=== PATIENT | male | born 1965 | race Caucasian/White ===

== ENCOUNTER 2016-09-30 22:16 | Outpatient (CLI) | payer MEDICAID | END 2016-09-30 22:17 | disposition home or self-care (01) | DX: F90.2 Attention-deficit hyperactivity disorder, combined type (principal); F31.32 Bipolar disorder, current episode depressed, moderate ==

== ENCOUNTER 2016-10-07 09:16 | Day surgery (SDC) | payer MEDICAID ==
[~2016-10-07 09:16] MED LIST: LIDOCAINE-MPF 2% 5 ML VIAL IM ONE; MIDAZOLAM 2 MG/2 ML VIAL IVP ONE; PHENYLEPHRINE 50 MG/5 ML VIAL IV ONE; fentaNYL 100 MCG/2 ML VIAL IVP ONE
[2016-10-07] MEDS ORDERED: LACTATED RINGERS 1,000 ML IV ONE (10:13)
[2016-10-07] MEDS ORDERED: ceFAZolin 1 GM VIAL ONE (10:17)
[2016-10-07] MEDS ORDERED: LIDOCAINE MPF 2%-EPI 1:200000 20 ML VIAL SUBQ ONE (11:30)
[2016-10-07] MEDS ORDERED: MIDAZOLAM 2 MG/2 ML VIAL IVP ONE (11:40)
[2016-10-07] MEDS ORDERED: LIDOCAINE-MPF 2% 5 ML VIAL IM ONE (11:40)
[2016-10-07] MEDS ORDERED: fentaNYL 100 MCG/2 ML VIAL IVP ONE (11:40)
[2016-10-07] MEDS ORDERED: PHENYLEPHRINE 50 MG/5 ML VIAL IV ONE (11:40)
[2016-10-07] MEDS ORDERED: oxyCODONE 5 MG TABLET ONE (11:51)
== END 2016-10-07 09:17 | disposition home or self-care (01) ==
PROC: 0LN70ZZ Release Right Hand Tendon, Open Approach (ICD-10-PCS; principal; 2016-10-07 10:30)
DX: M65.311 Trigger thumb, right thumb (principal); E03.9 Hypothyroidism, unspecified; I10 Essential (primary) hypertension; F17.200 Nicotine dependence, unspecified, uncomplicated; K21.9 Gastro-esophageal reflux disease without esophagitis
CPT/HCPCS: 26055; A9270; J7120

== ENCOUNTER 2016-11-13 08:31 | Outpatient (CLI) | payer MEDICAID | END 2016-11-13 08:32 | disposition home or self-care (01) | DX: Z53.9 Procedure and treatment not carried out, unspecified reason (principal) ==

== ENCOUNTER 2016-11-16 10:20 | Outpatient (CLI) | payer MEDICAID ==
[2016-11-16] MEDS ORDERED: IOPAMIDOL-300 100 ML VIAL IVP ONE (10:55)
== END 2016-11-16 10:21 | disposition home or self-care (01) ==
DX: B19.20 Unspecified viral hepatitis C without hepatic coma (principal); K76.9 Liver disease, unspecified
CPT/HCPCS: 74160; Q9967

== ENCOUNTER 2016-11-29 12:18 | Outpatient (CLI) | payer MEDICAID ==
[2016-11-29] MEDS ORDERED: GADOBUTROL 10 MMOL/10 ML VIAL IVP ONE (13:20)
== END 2016-11-29 12:19 | disposition home or self-care (01) ==
DX: B19.20 Unspecified viral hepatitis C without hepatic coma (principal); K76.9 Liver disease, unspecified
CPT/HCPCS: 74183; A9585

== ENCOUNTER 2017-01-31 13:15 | Outpatient (CLI) | payer MEDICAID ==
--- NOTE | 2017-01-31 18:40 | XRAY Report ---
RIGHT SHOULDER, THREE VIEWS: 01/31/2017 CLINICAL HISTORY: Pain in the right shoulder. COMPARISON: 12/14/2015 FINDINGS: Orthopedic plate and screws are noted in place bridging a healed old comminuted fracture o f the distal right clavicle. As compared to preceding exam, no definite change is noted at the fract ure site. Complete bony union is noted at the comminuted fracture. Right glenohumeral joint and right AC joint show no significant osteoarthritic change. There are healed old fractures of the right third and fourth lateral ribs once again seen and unchang ed. IMPRESSION: 1. HEALED OLD FRACTURE OF THE MID TO DISTAL RIGHT CLAVICLE WITH EVIDENCE OF INTERNAL FIXATION ONCE A GAIN SEEN. 2. HEALED OLD FRACTURES ONCE AGAIN NOTED OF THE RIGHT LATERAL THIRD AND FOURTH RIBS. JOB #: [id number] EXT JOB #:[id number]
== END 2017-01-31 13:16 | disposition home or self-care (01) ==
LOC: DI.S 13:15
PROVIDERS: ATTEND Nurse Practitioner Family
DX: M25.511 Pain in right shoulder (principal)

== ENCOUNTER 2017-02-14 13:36 | Outpatient (CLI) | payer MEDICAID ==
[2017-02-14 18:32] LABS: BILIRUBIN,DIRECT 0.1 mg/dL (0.1-0.5); BILIRUBIN,TOTAL 0.8 mg/dL (0.2-1.0); TOTAL PROTEIN 7.5 g/dL (6.7-8.2)
== END 2017-02-14 13:37 | disposition home or self-care (01) ==
LOC: LAB.S 13:36
PROVIDERS: ATTEND Physician Assistant
DX: B18.2 Chronic viral hepatitis C (principal)
CPT/HCPCS: 36415; 80076

== ENCOUNTER 2017-02-21 11:20 | Day surgery (SDC) | payer MEDICAID ==
--- NOTE | 2017-02-21 12:43 | SURGERY HX AND PHYSICAL(T) ---
Surgical History & Physical - PMH/PSH/Social Hx Does the pt have a hx of MRSA?: Yes Neurological History: None Eyes, Ears, Nose, Throat: Chronic vision loss Cardiovascular: Hypertension Respiratory: Pneumonia Skin: Other drug resistant infections, Other Endocrine/Autoimmune: HyPOthyroidism Gastrointestinal: GERD, Ulcers, Hiatal hernia, Colon polyps, Hemorrhoids, Hepatitis Urinary: Nocturia, Frequency, Kidney stones Musculoskeletal: Osteoarthritis, Chronic back pain Blood Disorders: None Psychiatric: Anxiety, Bipolar disorder, ADD/ADHD, Post traumatic stress disorder , Claustrophobia, Eating disorder General: Colonoscopy Orthopedic: Shoulder arthroplasty, Other Urologic: Ureterolithotomy (stones) Smoking Status: Current every day smoker - Home Meds and Allergies Home Medications: Amlodipine Besylate 1 tab PO DAILY 08/16/14 Levothyroxine Sodium 225 mcg PO DAILY 08/16/14 oxyCODONE [Roxicodone] 5 mg PO Q8H PRN 08/16/16 Allergies/Adverse Reactions: Allergies Allergy/AdvReac Type Severity Reaction Status Date / Time NSAIDS (Non-Steroidal Allergy Unknown Unknown Verified 04/27/16 10:13 Anti-Inflamma amoxicillin [Amoxicillin] AdvReac Unknown Nausea Verified 04/27/16 10:13 oral antibiotics AdvReac Unknown Uncoded 04/27/16 10:13 - Vital Signs Temperature: 36.6 C Respiratory Rate: 15 O2 Saturation: 96 Weight (kg): 94.5 kg Height: 1.8 m - Patient Review Patient Review: Problems were reviewed with the patient during this visit. Medications were reviewed with the patient during this visit. Allergies were reviewed this patient during this visit. Pertinent Tests Reviewed: All pertitent test for this patient were reviewed. - Assessment & Plan Assessment and Plan: DEYVI Joy initially sent this very pleasant 51 year-old male to my office on January 19 for the very same reasons. Because more than 30 days were allowed to elapse between the time I saw the patient and the procedure an update /new H&P is required. He describes his bowel movements as regular and normal. He denies nausea, vomiting, constipation, diarrhea, melena, hematochezia, hematemesis, abdominal pain, unexplained weight loss, or change in the color, character or caliber of his stool. His previous colonoscopy was performed May 08, [address] Flavio Desai at [facility] using MAC anesthesia and a total of 7 polyps were found 6 of which showed features of sessile serrated adenomas and one which was a simple tubular adenoma. Due to the shear number of polyps a repeat colonoscopy was recommended in 3 years. In addition, there is a family history of colon cancer in his father. Since the time I saw him in the office and now there have been no substantive changes to the H&P. There are no new medications, no new allergies, no new diagnoses, no admissions to the hospital., Allergies: * ORAL ANTIBIOTICS (Critical) AMOXICILLIN (Critical) Current Meds: SUPREP BOWEL PREP SOLN (NA SULFATE-K SULFATE-MG SULF) Take as directed LIDOCAINE 5 % EXT OINT (LIDOCAINE) apply 5g as needed for pain. Max 20g per day. EPCLUSA 400-100 MG ORAL TABS (SOFOSBUVIR-VELPATASVIR) Take one tablet by mouth daily OXYCODONE HCL 10 MG ORAL TABS (OXYCODONE HCL) one tablet by mouth as needed for severe pain, max up to 2 in a day. Rare use only. last 30 days AMLODIPINE BESYLATE 10 MG ORAL TABS (AMLODIPINE BESYLATE) one tablet daily for blood pressure ALPRAZOLAM 1 MG ORAL TABS (ALPRAZOLAM) one tab when needed for anxiety, not for daily use LEVOTHYROXINE SODIUM 200 MCG TABS (LEVOTHYROXINE SODIUM) Take one tablet by mouth daily Past Medical History: Hypertension Kidney Disease Liver Disease Thyroid Disorder problems with anesthesia depression anxiety panic attacks hemochromatosis Hyperlipidemia hiatal hernia Claustrophobia Past Surgical History: several knee surgeries pneumothorax bone grafts 4 surgeries for kidney stones R hand corrective surgery 2 colonoscopies Family History Summary: Mother (biol.) - Has Family History of Heart Disease - Entered On: 04/14/2016 Father (biol.) - Has Family History of Colon Cancer - Entered On: 04/14/2016 Father (biol.) - Has a father - Entered On: 01/19/2017 Risk Factors: 1-1-2 pack per day cigarette smoker Denies alcohol use or recreational drug use Review of Systems Asked constitutional, eyes, ears, nose, mouth, throat, cardiovascular, respiratory, gastrointestinal, genitourinary, musculoskeletal, integumentary, neurological, psychiatric, endocrine, hematologic, lymphatic, allergic, and immunologic and is diffusely positive. Physical Exam General: 51-year old male, appears slightly older than stated age, well developed, well nourished, evaluated in Bed # [facility] HEENT: Normocephalic, atraumatic, extraocular movement intact, mucous membranes pink and moist, sclera anicteric and not injected, mustache and may Neck: Supple without pain on palpation, mass or bruit Cardiac: Regular rate and rhythm without rub, gallop, or murmur Chest: Clear to auscultation bilaterally Abdomen: Soft, nontender, normoactive bowel sounds, no hepatomegaly, no splenomegaly Genitourinary: Deferred Rectal: Deferred until colonoscopy Extremities: No gross neurovascular problem, no clubbing, cyanosis or edema Gait: Not evaluated Psychiatric: Alert and oriented to person place and time, asks and answers questions appropriately, mood and affect appropriate Impression & Recommendations: History of tubulovillous adenoma Colonoscopy with possible biopsies and/or polypectomies. Indications, procedure , alternatives (such as barium enema, Cologuard and even no procedure at all) and risks including but not limited to perforation requiring operative repair, bleeding with its risks, and were fully explained to him. I kiana diagrams explaining the colonic anatomy and the proposed procedure and handed it to him. Conscious sedation was discussed at length with him as were its risks including but not limited to loss of airway, aspiration, respiratory depression, and not enough relief of pain and anxiety and he indicated that he wished to have conscious sedation for his procedure. I explained that MAC anesthesia is associated with a higher incidence of colon perforation. Review of his history does not reveal any significant systemic disease that would contraindicate use of conscious sedation or MAC anesthesia. All questions were fully answered. Verbal and written consent was obtained. The patient in preparation for his colonoscopy will be n.p.o. and his colon will be mechanically prepped. 15 minutes of [id number] time spent with the patient the majority of which was spent in discussion whereas another 15 minutes was required to generate this document
[2017-02-21] MEDS ORDERED: LACTATED RINGERS 1,000 ML IV ONE (12:51)
[2017-02-21] MEDS ORDERED: MIDAZOLAM 2 MG/2 ML VIAL IVP ONE (14:08)
[2017-02-21] MEDS ORDERED: fentaNYL 100 MCG/2 ML VIAL IVP ONE (14:08)
[2017-02-21 14:58] VITALS: BP 157/78
== END 2017-02-21 11:21 | disposition home or self-care (01) ==
LOC: SDS 11:20
PROVIDERS: ATTEND Surgery
PROC: 0DJD8ZZ Inspection of Lower Intestinal Tract, Via Natural or Artificial Opening Endoscopic (ICD-10-PCS; principal; 2017-02-21 12:30)
DX: Z12.11 Encounter for screening for malignant neoplasm of colon (principal); Z86.010 Personal history of colon polyps; Z80.0 Family history of malignant neoplasm of digestive organs; K57.30 Diverticulosis of large intestine without perforation or abscess without bleeding; K64.8 Other hemorrhoids; F17.210 Nicotine dependence, cigarettes, uncomplicated; I10 Essential (primary) hypertension
CPT/HCPCS: 45378; J7120

== ENCOUNTER 2017-02-28 08:00 | Outpatient (CLI) | payer MEDICAID | END 2017-02-28 08:01 | disposition home or self-care (01) | LOC: LAB.R 08:00 | PROVIDERS: ATTEND Nurse Practitioner Family | DX: E03.9 Hypothyroidism, unspecified (principal) | CPT/HCPCS: 84439; 84443; 84481 ==

== ENCOUNTER 2017-02-28 11:10 | Outpatient (CLI) | payer MEDICAID ==
[2017-03-03 21:03] LABS: ALPHAHYDROXYALPRAZOLAM NEGATIVE ng/mL (< 25); AMINOCLONAZEPAM NEGATIVE ng/mL (< 25); AMOBARBITAL NEGATIVE ng/mL (< 100); AMPHETAMINES NEGATIVE ng/mL (< 500); BARBITURATES POSITIVE ng/mL (< 300); BENZODIAZEPINES POSITIVE ng/mL (< 100); BUTALBITAL 605 ng/mL (< 100); HYDROXYETHYLFLURAZEPAM NEGATIVE ng/mL (< 50); MARIJUANA METABOLITE NEGATIVE CONFIRMED ng/mL (< 20); MARIJUANA METABOLITE THC NEGATIVE ng/mL (< 5); MEDMATCH AMINOCLONAZEPAM CONSISTENT (-); MEDMATCH AMOBARBITAL CONSISTENT (-); MEDMATCH AMPHETAMINES CONSISTENT (-); MEDMATCH AOH-ALPRAZOLAM CONSISTENT (-); MEDMATCH AOH-MIDAZOLAM CONSISTENT (-); MEDMATCH AOH-TRIAZOLAM CONSISTENT (-); MEDMATCH BUTALBITAL INCONSISTENT (-); MEDMATCH COCAINE METAB CONSISTENT (-); MEDMATCH CODEINE INCONSISTENT (-); MEDMATCH HYDROCODONE CONSISTENT (-); MEDMATCH HYDROMORPHONE CONSISTENT (-); MEDMATCH LORAZEPAM INCONSISTENT (-); MEDMATCH MARIJUANA METAB THC CONSISTENT (-); MEDMATCH METHADONE METAB CONSISTENT (-); MEDMATCH MORPHINE INCONSISTENT (()); MEDMATCH NORDIAZEPAM CONSISTENT (-); MEDMATCH NORHYDROCODONE CONSISTENT (-); MEDMATCH NOROXYCODONE INCONSISTENT (()); MEDMATCH OXAZEPAM CONSISTENT (-); MEDMATCH OXYCODONE METABOLITE INCONSISTENT (-); MEDMATCH OXYMORPHONE INCONSISTENT (()); MEDMATCH PHENCYCLIDINE CONSISTENT (-); MEDMATCH PHENOBARBITAL CONSISTENT (-); MEDMATCH SECOBARBITAL CONSISTENT (-); MEDMATCH TEMAZEPAM CONSISTENT (-); MEDMATH PENTOBARBITAL CONSISTENT (-); METHADONE METABOLITE NEGATIVE ng/mL (< 100); NORHYDROCODONE NEGATIVE ng/mL (< 50); NOROXYCODONE 1445 ng/mL (< 50); OPIATES POSITIVE ng/mL (< 100); OXAZEPAM NEGATIVE ng/mL (< 50); OXIDANT Negative mcg/mL (< 200); OXYCODONE METABOLITE 1545 ng/mL (< 50); PENTOBARBITAL NEGATIVE ng/mL (< 100); PHENCYCLIDINE NEGATIVE ng/mL (< 25); SECOBARBITAL NEGATIVE ng/mL (< 100)
== END 2017-02-28 11:11 | disposition home or self-care (01) ==
LOC: LAB.R 11:10
DX: Z79.891 Long term (current) use of opiate analgesic (principal)
CPT/HCPCS: 80307

== ENCOUNTER 2017-11-13 16:44 | Emergency (ER) | payer MEDICAID ==
[2017-11-13 17:04] VITALS: BP 146/100
[2017-11-13] MEDS ORDERED: LIDOCAINE 1% 2 ML VIAL ONE (18:01)
[2017-11-13] MEDS ORDERED: TETANUS/DIPHTHERIA/PERTUSSIS 0.5 ML SYRINGE IM ONE (18:04)
--- NOTE | 2017-11-13 18:06 | ED Physician Documentation ---
PD HPI UPPER EXT INJURY - Stated complaint Stated Complaint: RT INDEX FINGER INJ - Chief complaint Chief Complaint: Laceration - History obtained from History obtained from: Patient, Family (mom Kassy) - History of Present Illness Location: Right, Finger (index) Type of injury: Laceration Where injury occurred: Home Timing - onset: Today Timing - duration: Minutes Timing - details: Abrupt onset, Still present Improved by: Rest, Immobilization Worsened by: Moving Associated symptoms: No: Weakness, Numbness, Tingling Contributing factors: No: Anticoagulated Similar symptoms before: Diagnosis (laceration) Recently seen: Not recently seen - Additonal information Additional information: 52-year-old male was doing the dishes today when he lacerated his right index finger with a knife that he was cleaning. Review of Systems Constitutional: denies: Fever Respiratory: denies: Dyspnea GI: denies: Vomiting Skin: reports: Laceration (s) PD PAST MEDICAL HISTORY - Past Medical History Past Medical History: Yes Cardiovascular: Hypertension Respiratory: Pneumonia Neuro: None Endocrine/Autoimmune: HyPOthyroidism GI: GERD, Ulcers, Hiatal hernia, Colon polyps, Hemorrhoids, Hepatitis : Nocturia, Frequency, Kidney stones HEENT: Chronic vision loss Psych: Anxiety, Bipolar disorder, ADD/ADHD, Post traumatic stress disorder, Claustrophobia, Eating disorder Musculoskeletal: Osteoarthritis, Chronic back pain Derm: Other drug resistant infections, Other - Past Surgical History Past Surgical History: Yes General: Colonoscopy Ortho: Shoulder arthroplasty, Other - Present Medications Home Medications: Ambulatory Orders Medication Instructions Recorded Confirmed Amlodipine Besylate 1 tab PO DAILY 08/16/14 07/18/17 Levothyroxine Sodium 200 mcg PO DAILY 08/16/14 07/18/17 oxyCODONE [Roxicodone] 10 mg PO Q8H PRN 08/16/16 07/18/17 Amitriptyline [Elavil] 25 mg PO DAILY PM 07/18/17 07/18/17 Tamsulosin [Flomax] 2 cap PO DAILY 07/18/17 07/18/17 - Allergies Allergies/Adverse Reactions: Allergies Allergy/AdvReac Type Severity Reaction Status Date / Time amoxicillin [Amoxicillin] AdvReac Unknown Nausea Verified 11/13/17 17:53 oral antibiotics AdvReac Unknown Uncoded 11/13/17 16:52 - Social History Does the pt smoke?: Yes Smoking Status: Current every day smoker Does the pt drink ETOH?: No Does the pt have substance abuse?: No - Immunizations Immunizations are current?: Yes - POLST Patient has POLST: No PD ED PE NORMAL - Vitals Vital signs reviewed: Yes (hypertensive) - General General: Alert and oriented X 3, No acute distress, Well developed/nourished - HEENT HEENT: Atraumatic, PERRL - Respiratory Respiratory: No respiratory distress - Derm Derm: Normal color, Warm and dry, No rash - Extremities Extremities: Other (There is a laceration over the right index DIP joint dorsally. About 2.5cm) - Neuro Neuro: Alert and oriented X 3, No motor deficit, Normal speech Eye Opening: Spontaneous Motor: Obeys Commands Verbal: Oriented GCS Score: 15 - Psych Psych: Normal mood, Normal affect Results - Vitals Vitals: Vital Signs - 24 hr /12/28 16:49 Temperature 37.1 C Heart Rate 100 Respiratory 18 Rate Blood Pressure 146/100 H O2 Saturation 98 Oxygen O2 Source Room air Procedures - Laceration (location) index finger Length in cm: 2.5 Wound type: Linear, Flap, Clean Neurovascular status: Sensory intact, Motor intact, Vascular intact Anesthesia: Lidocaine 1% Wound Preparation: Hibiclens, Irrigated copiously NS, Wound explored, To the base Skin layer closure: Nylon, Interrupted, Size #-0 - enter number (5-0), Sutures - enter # (4) Other: Patient tolerated well, No complications, Neurovascular intact, Dressing applied, Tetanus booster given Complexity: Simple PD MEDICAL DECISION MAKING - ED course Complexity details: considered differential, d/w patient, d/w family ED course: Simple laceration is sutured patient with a low threshold for pain. Departure - Departure Disposition: 01 Home, Self Care Clinical Impression: Laceration of index finger Qualifiers: Encounter type: initial encounter Damage to nail status: without damage Foreign body presence: without foreign body Laterality: right Qualified Code(s) : S61.210A - Laceration without foreign body of right index finger without damage to nail, initial encounter Condition: Stable Instructions: ED Laceration Hand Follow-Up: Pilar Serna ARNP [Primary Care Provider] - Comments: Sutures out in 10-14 days Today in the Emergency Department your blood pressure was elevated. This can happen from the stress of the visit itself, from a current illness or circumstance or from uncontrolled hypertension. If you take blood pressure medications take your usual mediations, have your blood pressure re-checked in an appropriate setting and follow up any elevation with your primary care doctor.
== END 2017-11-13 18:32 | disposition home or self-care (01) ==
LOC: ED 16:44
DX: S61.210A Laceration without foreign body of right index finger without damage to nail, initial encounter (principal); W26.0XXA Contact with knife, initial encounter; Y93.G1 Activity, food preparation and clean up; Y92.009 Unspecified place in unspecified non-institutional (private) residence as the place of occurrence of the external cause; I10 Essential (primary) hypertension; E03.9 Hypothyroidism, unspecified; F17.200 Nicotine dependence, unspecified, uncomplicated
CPT/HCPCS: 12001; 99282; 99283

== ENCOUNTER 2018-01-16 10:24 | Outpatient (CLI) | payer MEDICAID ==
[2018-01-16 10:20] LABS: ALBUMIN 4.3 g/dL (3.2-5.5); ALBUMIN/GLOBULIN RATIO 1.2 (1.0-2.2); ALKALINE PHOSPHATASE 78 IU/L (42-121); ALT ALANINE AMINOTRANSFERASE 17 IU/L (10-60); AST ASPARTATE AMINOTRANSFERASE 19 IU/L (10-42); BILIRUBIN,TOTAL 1.2 mg/dL (0.2-1.0); BUN - BLOOD UREA NITROGEN 12 mg/dL (6-20); CALCIUM 9.5 mg/dL (8.5-10.3); CARBON DIOXIDE - CO2 23 mmol/L (21-32); CHLORIDE 105 mmol/L (101-111); CHOL/HDL RATIO 3.6 (<5.0); CHOLESTEROL 159 mg/dL; CREATININE 0.8 mg/dL (0.6-1.2); GFR - MDRD 102 (>89); GLUCOSE 114 mg/dL (70-100); HDL CHOLESTEROL 44 mg/dL; LDL CHOLESTEROL,CALCULATED 97 mg/dL; LDL/HDL RATIO 2.2 (<3.6); SODIUM 137 mmol/L (135-145); TOTAL PROTEIN 7.9 g/dL (6.7-8.2); VLDL CHOLESTEROL 18 mg/dL
[2018-01-16 10:31] LABS: THYROID STIMULATING HORMONE 1.99 uIU/mL (0.34-5.60)
[2018-01-16 10:33] LABS: FREE T4 (FREE THYROXINE) 1.11 ng/dL (0.58-1.64)
[2018-01-18 14:29] LABS: HCV RNA QNT <1.18 NOT DETECTED Log IU/mL (NOT DETECTED); HCV RNA QUANT RT PCR <15 NOT DETECTED IU/mL (NOT DETECTED)
== END 2018-01-16 10:25 | disposition home or self-care (01) ==
LOC: LAB.R 10:24
PROVIDERS: ATTEND Nurse Practitioner Family
DX: B19.20 Unspecified viral hepatitis C without hepatic coma (principal); E78.5 Hyperlipidemia, unspecified; E03.9 Hypothyroidism, unspecified
CPT/HCPCS: 36415; 80053; 80061; 83721; 84439; 84443; 87522

== ENCOUNTER 2018-01-24 08:41 | Outpatient (CLI) | payer MEDICAID ==
[2018-01-24 12:29] LABS: HB2 TOTAL 16.6 g/dL; HEMOGLOBIN A1C 0.55 g/dL; HEMOGLOBIN A1C % 5.2 % (4.6-6.2)
== END 2018-01-24 08:42 | disposition home or self-care (01) ==
LOC: LAB.F 08:41
PROVIDERS: ATTEND Nurse Practitioner Family
DX: R73.01 Impaired fasting glucose (principal)
CPT/HCPCS: 36415; 83036

== ENCOUNTER 2018-06-29 08:00 | Outpatient (CLI) | payer MEDICAID | END 2018-06-29 08:01 | LOC: LAB.R 08:00 | PROVIDERS: ATTEND Nurse Practitioner Family | DX: E03.9 Hypothyroidism, unspecified (principal) | CPT/HCPCS: 84443 ==

== ENCOUNTER 2018-07-06 08:00 | Outpatient (CLI) | payer MEDICAID | END 2018-07-06 08:01 | LOC: LAB.R 08:00 | PROVIDERS: ATTEND Nurse Practitioner Family | DX: E03.9 Hypothyroidism, unspecified (principal) | CPT/HCPCS: 84443 ==

== ENCOUNTER 2018-11-11 12:51 | Outpatient (CLI) | payer MEDICAID | END 2018-11-11 12:52 | disposition home or self-care (01) | LOC: DI 12:51 | PROVIDERS: ATTEND Nurse Practitioner Family | DX: R04.2 Hemoptysis (principal); Z53.9 Procedure and treatment not carried out, unspecified reason ==

== ENCOUNTER 2018-11-15 12:10 | Outpatient (CLI) | payer MEDICAID ==
--- NOTE | 2018-11-15 13:52 | CT Report ---
Reason: HEMOPTYSIS Procedure Date: 11/15/2018 Accession Number: [id number] / [id number] Procedure: CT - CHEST WO CPT Code: FULL RESULT: EXAM CT CHEST EXAM DATE: 11/15/2018 12:59 PM. HISTORY: Hemoptysis. 14-spho-clza smoker. Shortness of breath, cough, fatigue and night sweats. COMPARISON: ABDOMEN W/ 11/16/2016 10:43 AM. TECHNIQUE: CT examination of the entire thorax without contrast was performed using low-dose technique. Thin section coronal, axial, sagittal and MIP axial images were obtained. In accordance with CT protocol optimization, one or more of the following dose reduction techniques were utilized for this exam: automated exposure control, adjustment of mA and/or KV based on patient size, or use of iterative reconstructive technique. FINDINGS: Nodules: Right upper lobe: None. Right middle lobe: 2 mm nodule image 40 series 4 Right lower lobe: None. Left upper lobe: None. Left lower lobe: None. Emphysema: None. Pleura: Unremarkable. Aorta: Mildly calcified. Mediastinum: Borderline enlarged pulmonary artery. Coronary calcifications: None. Other pulmonary findings: None. Other extrapulmonary findings: Nonobstructing calculi measuring 5 mm or less are identified in the right kidney. Mild anterior wedge deformity of T11, approximately 25% loss of height. This is stable compared to the CT abdomen from November 2016. IMPRESSION: No suspicious mass is identified to explain the patient's hemoptysis. RADIA
== END 2018-11-15 12:11 | disposition home or self-care (01) ==
LOC: DI 12:10
PROVIDERS: ATTEND Nurse Practitioner Family
DX: R04.2 Hemoptysis (principal); F17.210 Nicotine dependence, cigarettes, uncomplicated
CPT/HCPCS: 71250

== ENCOUNTER 2019-05-08 10:30 | Outpatient (CLI) | payer MEDICAID | END 2019-05-08 10:31 | disposition short-term general hospital (02) | LOC: EMS 10:30 | PROVIDERS: ATTEND Surgery | DX: R52 Pain, unspecified (principal); F41.0 Panic disorder [episodic paroxysmal anxiety] | CPT/HCPCS: A0425; A0427; A0999 ==

== ENCOUNTER 2019-05-25 13:39 | Emergency (ER) | payer MEDICAID ==
[2019-05-25] MEDS ORDERED: LIDOCAINE 1%-EPI 1:100000 20 ML MDV SUBQ STA (13:54)
[2019-05-25] MEDS ORDERED: LIDOCAINE 1%-EPI 1:100000 20 ML MDV ONE (14:06)
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
[2019-05-25] MEDS ORDERED: cefTRIAXone 1 GM VIAL IM STA (15:01)
[2019-05-25] MEDS ORDERED: LIDOCAINE 1% 2 ML VIAL MC ONE (15:01)
[2019-05-25 15:02] LABS: BASOPHILS # (AUTO) 0.1 10^3/uL (0.0-0.1); BASOPHILS % (AUTO) 0.6 %; EOSINOPHILS # (AUTO) 0.1 10^3/uL (0.0-0.7); HGB - HEMOGLOBIN 14.6 g/dL (14.0-18.0); MEAN CORPUSCULAR HEMOGLOBIN 30.9 pg (27.0-31.0); MEAN CORPUSCULAR HGB CONC 33.9 g/dL (32.0-36.0); MEAN CORPUSCULAR VOLUME 91.1 fL (80.0-94.0); MEAN PLATELET VOLUME 10.9 fL (7.4-11.4); MONOCYTES # (AUTO) 0.7 10^3/uL (0.0-1.0); MONOCYTES % (AUTO) 6.3 %; NEUTROPHILS # (AUTO) 7.6 10^3/uL (1.5-6.6); NEUTROPHILS % (AUTO) 72.6 %; RED BLOOD COUNT 4.73 10^6/uL (4.70-6.10); WHITE BLOOD COUNT 10.5 x10^3/uL (4.8-10.8)
[2019-05-25 15:07] LABS: CALCIUM 9.6 mg/dL (8.5-10.3); CREATININE 0.9 mg/dL (0.6-1.2)
[2019-05-25 15:17] LABS: PLATELET ESTIMATE, MANUAL NORMAL (130-450,000) (NORMAL); PLATELET MORPHOLOGY PLATELET CLUMPING (NORMAL); RBC MORPHOLOGY (MULTIPLE) NORMAL APPEARANCE (NORMAL)
[2019-05-25] MEDS ORDERED: oxyCODONE 5 MG TABLET PO STA (16:42)
--- NOTE | 2019-05-25 16:47 | Ultrasound Report ---
Reason: Right upper arm fistula Procedure Date: 05/25/2019 Accession Number: [id number] / [id number] Procedure: US - Doppler Limited CPT Code: FULL RESULT: EXAM: UPPER EXTREMITY DOPPLER ULTRASOUND EXAM DATE: 05/25/2019 03:22 PM. CLINICAL HISTORY: Right upper arm fistula. Concern for abscess at lump. COMPARISON: None. TECHNIQUE: Real-time scanning was performed with static images obtained. Color flow and duplex imaging obtained. FINDINGS: There is a mass in the right arm. At the site of the mass, there is a vascular lesion corresponding to 50 which overall measures 7.9 x 6.4 x 6.4 cm. There is an ovoid cystic structure measuring 4.8 x 3.7 x 4.8 cm which could represent aneurysm versus dilated AV fistula. No separate abscess visualized. There is blood flow within the mass. Other: None. IMPRESSION: 1. No abscess. Large vascular mass in the right arm, corresponding to lump and AV fistula measuring 7.9 x 6.4 x 6.4 cm. There is a cystic dilated component measuring 4.8 cm in diameter, uncertain if this represents an aneurysm or expected appearance of AV fistula. RADIA
[2019-05-25 19:46] VITALS: BP 137/95
== END 2019-05-25 19:46 | disposition short-term general hospital (02) ==
LOC: ED 13:39
DX: T82.898A Other specified complication of vascular prosthetic devices, implants and grafts, initial encounter (principal); Y83.8 Other surgical procedures as the cause of abnormal reaction of the patient, or of later complication, without mention of misadventure at the time of the procedure; I77.0 Arteriovenous fistula, acquired; E83.119 Hemochromatosis, unspecified; Z86.14 Personal history of Methicillin resistant Staphylococcus aureus infection; I10 Essential (primary) hypertension; F17.200 Nicotine dependence, unspecified, uncomplicated
CPT/HCPCS: 36415; 80048; 85025; 93976; 96372; 99284; 99285; A9270

== ENCOUNTER 2019-06-13 10:13 | Emergency (ER) | payer MEDICAID ==
[2019-06-13 10:33] VITALS: BP 157/114
--- NOTE | 2019-06-13 12:05 | ED Physician Documentation ---
PD HPI HEENT - Stated complaint Stated Complaint: right ear pain, right arm wound - Chief complaint Chief Complaint: Heent - History obtained from History obtained from: Patient - History of Present Illness Timing - onset: How many weeks ago (1) Timing - duration: Weeks (1) Timing - details: Abrupt onset (he says he had a small rubber piece from earbud or such in the right ear canal for about a year. It had not bothered him so let it be. He felt onset of pain when using qtip a week ago and ear has been hurting with decreased acusis since.) Location: Right ear Improves: No: Medication (ibuprofen without improvement) Worsens: Position (head tilted hurts more) Associated symptoms: Other (decreased hearing right ear, and ear pain). No: Fever, Congestion, Rhinorrhea Similar symptoms before: Has not had sx before Review of Systems Constitutional: denies: Fever, Chills, Myalgias Ears: reports: Loss of hearing (decreased significantly the past week), Ear pa in. denies: Drainage/discharge, Tinnitus/ringing Nose: denies: Rhinorrhea / runny nose, Congestion, Sinus pressure / pain Throat: denies: Sore throat Skin: reports: Other (has healing wound right upper arm s/p surgical repair/removal of fistula aneurysm a month ago.) PD PAST MEDICAL HISTORY - Past Medical History Cardiovascular: Hypertension Respiratory: Pneumonia Endocrine/Autoimmune: HyPOthyroidism GI: GERD, Ulcers, Hiatal hernia, Colon polyps, Hemorrhoids, Hepatitis : Nocturia, Frequency, Kidney stones HEENT: Chronic vision loss Psych: Anxiety, Bipolar disorder, ADD/ADHD, Post traumatic stress disorder, Claustrophobia, Eating disorder Musculoskeletal: Osteoarthritis, Chronic back pain Derm: Other drug resistant infections, Other - Past Surgical History Past Surgical History: Yes General: Colonoscopy Ortho: Shoulder arthroplasty, Other - Present Medications Home Medications: Ambulatory Orders Medication Instructions Recorded Confirmed Levothyroxine Sodium 180 mcg PO DAILY 08/16/14 07/10/18 Tamsulosin [Flomax] 2 cap PO DAILY 07/18/17 07/10/18 Clotrimazole 3 drops RIGHTEAR TID #10 ml 06/13/19 Doxycycline Hyclate 100 mg PO BID #10 capsule 06/13/19 Mupirocin 1 applic TP TID #15 g 06/13/19 Neomycin/Polymyx/Hc Otic Drops 3 drops OT TID #1 bottle 06/13/19 [Cortisporin Ear Susp] oxyCODONE [Roxicodone] 5 mg PO Q4-6H PRN #15 tablet 06/13/19 - Allergies Allergies/Adverse Reactions: Allergies Allergy/AdvReac Type Severity Reaction Status Date / Time amoxicillin [Amoxicillin] AdvReac Unknown Nausea Verified 06/13/19 10:24 oral antibiotics AdvReac Unknown Uncoded 06/13/19 10:24 - Social History Does the pt smoke?: Yes Smoking Status: Current every day smoker Does the pt drink ETOH?: No Does the pt have substance abuse?: No - Immunizations Immunizations are current?: Yes - POLST Patient has POLST: No PD ED PE NORMAL - Vitals Vital signs reviewed: Yes - General General: Alert and oriented X 3, Well developed/nourished, Other (appears uncomfortable) - HEENT HEENT: Moist mucous membranes, Pharynx benign. No: Ears normal (left is normal. Right ear canal with black rubber piece close to TM. Canal appears red with some exudate and tissue swelling. ) - Neck Neck: Supple, no meningeal sign, No adenopathy - Cardiac Cardiac: RRR, No murmur - Respiratory Respiratory: Clear bilaterally - Derm Derm: Normal color, Warm and dry - Extremities Extremities: Other (right upper arm with healing wound without signs of infection. ) Results - Vitals Vitals: Oxygen O2 Source Room air Procedures - FB removal FB location: Ear (right) Removal method: Foreceps (alligator forceps used and removed without any discomfort.) FB removal aftercare: No complications, Patient tolerated well, Removed successfully PD MEDICAL DECISION MAKING - ED course Complexity details: considered differential (the right upper arm wound healing okay without signs of infection. Right ear canal with small FB removed with alligator forceps. There is significant OE with canal cellulitis distal to where the FB was. ), d/w patient Departure - Departure Disposition: 01 Home, Self Care Clinical Impression: Healing of postoperative wound, Foreign body in right ear, initial encounter Otitis externa Qualifiers: Otitis externa type: diffuse Chronicity: acute Laterality: right Qualified Code(s): H60.311 - Diffuse otitis externa, right ear Condition: Stable Record reviewed to determine appropriate education?: Yes Instructions: ED Otitis Externa Prescriptions: Clotrimazole 3 drops RIGHTEAR TID #10 ml Doxycycline Hyclate 100 mg PO BID #10 capsule Mupirocin 1 applic TP TID #15 g Neomycin/Polymyx/Hc Otic Drops [Cortisporin Ear Susp] 3 drops OT TID #1 bottle oxyCODONE [Roxicodone] 5 mg PO Q4-6H PRN #15 tablet PRN Reason: Pain Comments: Use the antibiotic and antifungal eardrops both 3-4 times a day for the next 5 or 6 days. This should clear the ear canal infection. It is hard to tell whether it is fungal or bacterial. The rubber piece is out of the canal now and that should allow it to heal up better. Use the doxycycline oral antibiotic as well as there is swelling in the ear canal so the infection may be into the tissue 2. Continue wound care of the arm wound. Use is very light bit of mupirocin antibiotic ointment to it with the dressing changes. Follow-up with the wound care. Discharge Date/Time: 06/13/19 13:19
[2019-06-13] MEDS ORDERED: MUPIROCIN 2% OINT 1 GM TOP STA (12:28)
[2019-06-13] MEDS ORDERED: HYDROcod/ACETAM 5/325 MG TABLET PO STA (12:28)
[2019-06-13] MEDS ORDERED: DOXYCYCLINE 100 MG TABLET PO STA (12:28)
[2019-06-13] MEDS ORDERED: NAPROXEN 250 MG TABLET PO STA (12:29)
[2019-06-13] MEDS ORDERED: oxyCODONE 5 MG TABLET PO STA (12:47)
== END 2019-06-13 13:19 | disposition home or self-care (01) ==
LOC: ED 10:13
DX: T16.1XXA Foreign body in right ear, initial encounter (principal); H60.311 Diffuse otitis externa, right ear; Z98.890 Other specified postprocedural states; F17.200 Nicotine dependence, unspecified, uncomplicated
CPT/HCPCS: 69200; 99282; 99283; A9270

== ENCOUNTER 2020-08-09 18:05 | Outpatient (CLI) | payer MEDICAID | END 2020-08-09 18:06 | disposition critical access hospital (66) | LOC: EMS 18:05 | PROVIDERS: ATTEND Surgery | DX: R44.8 Other symptoms and signs involving general sensations and perceptions (principal); R11.0 Nausea; R10.9 Unspecified abdominal pain | CPT/HCPCS: A0425; A0427; A0999 ==

== ENCOUNTER 2020-08-09 19:15 | Emergency (ER) | payer MEDICAID ==
[2020-08-09] MEDS ORDERED: BUPRENORPHINE 0.3 MG/ML VIAL IM ONE (20:06)
[2020-08-09] MEDS ORDERED: ONDANSETRON 4 MG/2 ML VIAL IM STA (20:06)
--- NOTE | 2020-08-09 20:07 | ED Physician Documentation ---
History of Present Illness - Stated complaint Stated Complaint: ALLERGIC REACTION - Chief complaint Chief Complaint: Allergic Rx - History obtained from History obtained from: Patient - Additonal information Additional information: 55-year-old gentleman with history of injection drug use was seen at [facility] a few days ago for hand infection. He was sent home with prescription for amoxicillin and Cipro. Now is feeling sick, vomited this morning and could not keep down his methadone. And feels like he is having an allergic reaction with GI symptoms, diarrhea nausea to the antibiotics. Review of Systems Constitutional: denies: Fever, Chills Throat: denies: Dental pain / toothache, Sore throat Cardiac: denies: Chest pain / pressure, Palpitations Respiratory: denies: Dyspnea, Cough PD PAST MEDICAL HISTORY - Past Medical History Past Medical History: Yes Cardiovascular: Hypertension Respiratory: Pneumonia Endocrine/Autoimmune: HyPOthyroidism GI: GERD, Ulcers, Hiatal hernia, Colon polyps, Hemorrhoids, Hepatitis : Nocturia, Frequency, Kidney stones HEENT: Chronic vision loss Psych: Anxiety, Bipolar disorder, ADD/ADHD, Post traumatic stress disorder, Claustrophobia, Eating disorder Musculoskeletal: Osteoarthritis, Chronic back pain Derm: Other drug resistant infections, Other - Past Surgical History Past Surgical History: Yes General: Colonoscopy Ortho: Shoulder arthroplasty, Other - Present Medications Home Medications: Ambulatory Orders Medication Instructions Recorded Confirmed Levothyroxine Sodium 180 mcg PO DAILY 08/16/14 07/10/18 Tamsulosin [Flomax] 2 cap PO DAILY 07/18/17 07/10/18 Clotrimazole 3 drops RIGHTEAR TID #10 ml 06/13/19 Doxycycline Hyclate 100 mg PO BID #10 capsule 06/13/19 Mupirocin 1 applic TP TID #15 g 06/13/19 Neomycin/Polymyx/Hc Otic Drops 3 drops OT TID #1 bottle 06/13/19 [Cortisporin Ear Susp] oxyCODONE [Roxicodone] 5 mg PO Q4-6H PRN #15 tablet 06/13/19 - Allergies Allergies/Adverse Reactions: Allergies Allergy/AdvReac Type Severity Reaction Status Date / Time amoxicillin [Amoxicillin] AdvReac Unknown Nausea Verified 08/09/20 19:17 oral antibiotics AdvReac Unknown Uncoded 08/09/20 19:17 - Social History Does the pt smoke?: Yes Smoking Status: Current every day smoker Does the pt drink ETOH?: No Does the pt have substance abuse?: No - Immunizations Immunizations are current?: Yes - POLST Patient has POLST: No PD ED PE NORMAL - Vitals Vital signs reviewed: Yes - General General: Alert and oriented X 3, No acute distress - Neck Neck: Supple, no meningeal sign, No bony TTP - Extremities Extremities: Other (Is restless and moaning consistent with narcotic withdrawal. He has multiple healing areas of cellulitis, the dorsum of the left hand and the left deltoid, none with fluctuance.) - Neuro Neuro: Alert and oriented X 3, Normal speech Results - Vitals Vitals: Vital Signs - 24 hr 08/09/20 08/09/20 08/09/20 19:17 19:21 19:22 Temperature 96.8 C H 36.4 C L 36.4 C L Heart Rate 73 73 Respiratory 18 18 Rate Blood Pressure 162/91 H 162/91 H O2 Saturation 100 100 08/09/20 08/09/20 21:21 21:54 Temperature 36.4 C L 36.4 C L Heart Rate 72 72 Respiratory 18 18 Rate Blood Pressure 148/80 H 148/80 H O2 Saturation 100 99 Oxygen O2 Source Room air PD MEDICAL DECISION MAKING - ED course ED course: 55-year-old gentleman with history of narcotic and methamphetamine abuse usually on methadone presents with predominantly GI symptoms after starting antibiotics, specifically Augmentin and Cipro a few days ago. We are able to improve his symptoms stepwise with IM buprenorphine followed by Zofran, this was followed by some IM Dilaudid. At that point he looks quite comfortable and was resting calmly until I went into the room to inquire about his symptoms at which point he started loudly loudly retching again. Reexamination of his abdomen at the time showed no abdominal tenderness. Offered to discuss replacement antibiotics but he does not want to take any antibiotics at this point, we discussed potentially sulfa or Keflex and he declined all. He was given a dose of his oral methadone since he did keep it down this morning. Departure - Departure Disposition: 01 Home, Self Care Clinical Impression: Narcotic withdrawal Abdominal pain Qualifiers: Abdominal location: generalized Qualified Code(s): R10.84 - Generalized abdominal pain Condition: Good Record reviewed to determine appropriate education?: Yes Instructions: ED Narcotic Abuse Comments: Return if infection worsens as you declined a new antibiotic. Return if worse otherwise. Take your methadone in the morning as usual. Discharge Date/Time: 08/09/20 22:37
[2020-08-09] MEDS ORDERED: HYDROmorphone 1 MG/ML CARPUJECT IM STA (20:48)
[2020-08-09 21:26] VITALS: BP 148/80
[2020-08-09] MEDS ORDERED: METHADONE 5 MG TABLET PO STA (21:35)
== END 2020-08-09 22:37 | disposition home or self-care (01) ==
LOC: ED 19:15
DX: R11.2 Nausea with vomiting, unspecified (principal); R19.7 Diarrhea, unspecified; F15.13 Other stimulant abuse with withdrawal; I10 Essential (primary) hypertension; F17.200 Nicotine dependence, unspecified, uncomplicated
CPT/HCPCS: 96372; 99283; A9270; J0592; J1170

== ENCOUNTER 2021-05-11 15:09 | Outpatient (CLI) | payer MEDICAID | END 2021-05-11 23:59 | disposition critical access hospital (66) | LOC: EMS 15:09 | DX: S40.212A Abrasion of left shoulder, initial encounter (principal); S50.311A Abrasion of right elbow, initial encounter; V19.88XA Pedal cyclist (driver) (passenger) injured in other specified transport accidents, initial encounter; Y92.488 Other paved roadways as the place of occurrence of the external cause; Y93.55 Activity, bike riding | CPT/HCPCS: A0425; A0427; A0999 ==

== ENCOUNTER 2021-05-11 15:43 | Emergency (ER) | payer MEDICAID ==
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
[2021-05-11 17:21] VITALS: BP 167/111
[2021-05-11] MEDS ORDERED: oxyCODONE 5 MG TABLET PO STA (17:26)
== END 2021-05-11 17:29 | disposition home or self-care (01) ==
LOC: EDUNIT# → ED 15:43
DX: S20.212A Contusion of left front wall of thorax, initial encounter (principal); S16.1XXA Strain of muscle, fascia and tendon at neck level, initial encounter; S53.401A Unspecified sprain of right elbow, initial encounter; M25.511 Pain in right shoulder; M25.512 Pain in left shoulder; V18.0XXA Pedal cycle driver injured in noncollision transport accident in nontraffic accident, initial encounter; Y93.55 Activity, bike riding; I10 Essential (primary) hypertension; F17.200 Nicotine dependence, unspecified, uncomplicated
CPT/HCPCS: 80053; 83690; 85025; 99284

== ENCOUNTER 2021-10-17 07:26 | Emergency (ER) | payer MEDICAID ==
[2021-10-17 07:36] VITALS: BP 159/108
[2021-10-17] MEDS ORDERED: LIDOCAINE 2%-EPI 1:100000 20 ML MDV SUBQ STA (07:57)
--- NOTE | 2021-10-17 08:00 | ED Physician Documentation ---
History of Present Illness - Stated complaint Stated Complaint: RT SIDE TOOTH PX - Chief complaint Chief Complaint: Heent - History obtained from History obtained from: Patient - History of Present Illness Timing: How many days ago (3) Pain level max: 10 Pain level now: 10 - Additonal information Additional information: 56-year-old male presents to the emergency department with right-sided dental pain. Ongoing for the past 3 days. He has an appointment to see his dentist in 2 days. Requesting a lidocaine injection to numb his tooth. Nothing makes it better or worse. He states he cannot take any oral antibiotics and refuses to take any. Nothing makes it better or worse. Review of Systems Constitutional: denies: Fever, Chills GI: denies: Vomiting, Diarrhea PD PAST MEDICAL HISTORY - Past Medical History Cardiovascular: Hypertension Respiratory: Pneumonia Endocrine/Autoimmune: HyPOthyroidism GI: GERD, Ulcers, Hiatal hernia, Colon polyps, Hemorrhoids, Hepatitis : Nocturia, Frequency, Kidney stones HEENT: Chronic vision loss Psych: Anxiety, Bipolar disorder, ADD/ADHD, Post traumatic stress disorder, Claustrophobia, Eating disorder Musculoskeletal: Osteoarthritis, Chronic back pain Derm: Other drug resistant infections, Other - Past Surgical History Past Surgical History: Yes General: Colonoscopy Ortho: Shoulder arthroplasty, Other - Present Medications Home Medications: Ambulatory Orders Medication Instructions Recorded Confirmed Levothyroxine Sodium 180 mcg PO DAILY 08/16/14 07/10/18 Tamsulosin [Flomax] 2 cap PO DAILY 07/18/17 07/10/18 Clotrimazole 3 drops RIGHTEAR TID #10 ml 06/13/19 Doxycycline Hyclate 100 mg PO BID #10 capsule 06/13/19 Mupirocin 1 applic TP TID #15 g 06/13/19 Neomycin/Polymyx/Hc Otic Drops 3 drops OT TID #1 bottle 06/13/19 [Cortisporin Ear Susp] oxyCODONE [Roxicodone] 5 mg PO Q4-6H PRN #15 tablet 06/13/19 Amlodipine Besylate [Norvasc] 1 tab PO DAILY 05/11/21 05/11/21 Atorvastatin Calcium 1 tab PO DAILY 05/11/21 05/11/21 Levothyroxine [Synthroid] 1 tab PO DAILY 05/11/21 05/11/21 oxyCODONE [Roxicodone] 5 mg PO Q4-6H PRN #14 tablet 05/11/21 Oxycodone HCl/Acetaminophen 1 - 2 each PO Q6H PRN #14 tablet 10/17/21 [Percocet 5-325 mg Tablet] - Allergies Allergies/Adverse Reactions: Allergies Allergy/AdvReac Type Severity Reaction Status Date / Time amoxicillin [Amoxicillin] AdvReac Unknown Nausea Verified 10/17/21 07:36 oral antibiotics AdvReac Unknown Uncoded 10/17/21 07:36 - Social History Does the pt smoke?: Yes Smoking Status: Current every day smoker Does the pt drink ETOH?: No Does the pt have substance abuse?: Yes - Immunizations Immunizations are current?: Yes - POLST Patient has POLST: No PD ED PE NORMAL - Vitals Vital signs reviewed: Yes - General General: Alert and oriented X 3, No acute distress - HEENT HEENT: Moist mucous membranes, Other (Very poor decaying dentition throughout. No drainable abscess. Normal phonation. No facial swelling. No Les's angina) - Neck Neck: Supple, no meningeal sign - Cardiac Cardiac: RRR - Respiratory Respiratory: No respiratory distress, Clear bilaterally - Abdomen Abdomen: Soft, Non tender, Non distended - Derm Derm: Warm and dry - Neuro Neuro: Alert and oriented X 3 Results - Vitals Vitals: Vital Signs - 24 hr 10/17/21 07:29 Temperature 36.5 C Heart Rate 94 Respiratory 17 Rate Blood Pressure 159/108 H O2 Saturation 99 Oxygen O2 Source Room air Procedures - General procedure General procedure: Dental block - Dental block performed at the gumline with 2% lidocaine with epinephrine. Right side of mandible. No complications. Good anesthesia achieved. 1.5 cc used PD MEDICAL DECISION MAKING - ED course Complexity details: considered differential, d/w patient ED course: Dental block performed. Excellent anesthesia achieved. Patient refuses all oral antibiotics. We will prescribe a small amount of pain medication to get him through the weekend until he can see his dentist on Tuesday. Patient counseled regarding signs and symptoms for which I believe and urgent re- evaluation would be necessary. Patient with good understanding of and agreement to plan and is comfortable going home at this time This document was made in part using voice recognition software. While efforts are made to proofread this document, sound alike and grammatical errors may occur. I am prescribing a short course of short-acting opioid pain medication for this patient. I have reviewed the patients PRODUCTION DISPATCHER and no concerning findings were noted. I have discussed that the opioids are for short term therapy only, and will not be refilled from the ED. Departure - Departure Disposition: 01 Home, Self Care Clinical Impression: Pain due to dental caries Condition: Good Instructions: ED Tooth Pain Follow-Up: your,dentist on tuesday [Other] Prescriptions: Oxycodone HCl/Acetaminophen [Percocet 5-325 mg Tablet] 1 - 2 each PO Q6H PRN #14 tablet PRN Reason: pain Comments: Make sure to follow up with your dentist on Tuesday for further care. Return if you worsen. Your prescription was sent to [facility] in [place]. I am prescribing a short course of narcotic pain medication for you. These are potentially dangerous and addictive medications that should be used carefully. These medications may constipate you. Take an oudh-czo-chovlso stool softener (docusate) twice daily with plenty of water while taking these medications. If you go 24 hours without a bowel movement, take [id number]-[id number]-naxstwe miralax, per package instructions. Do not drink or drive while taking these medications. If you received narcotic or sedating medications while in the emergency department, do not drive for 24 hours. Store this medication in a safe, secure place and out of reach of children. It is a violation of federal law to give or sell this medication to another person or to use in a manner other than prescribed. The ED will not refill narcotic prescriptions, including prescriptions lost or stolen. To dispose of unwanted medications: 1. [facility] at [address] in [place] has a medication drop box. They accept prescription medications (in pill form) Tuesday through Tuesday 9:00 a.m. to 5:00 p.m. 2. The [facility] [employer] accepts prescription medications (in pill form only) for disposal year round. Call for more information. 3. Contact the [facility] for the next [facility] sponsored prescription drug collection event. , [phone], or [phone]; Discharge Date/Time: 10/17/21 09:10
== END 2021-10-17 09:10 | disposition home or self-care (01) ==
LOC: ED 07:26
DX: K02.9 Dental caries, unspecified (principal); F17.200 Nicotine dependence, unspecified, uncomplicated
CPT/HCPCS: 64400; 99282

== ENCOUNTER 2023-11-02 07:13 | Outpatient (CLI) | payer MEDICAID | END 2023-11-02 07:14 | disposition short-term general hospital (02) | LOC: EMS 07:13 | DX: R52 Pain, unspecified (principal); R61 Generalized hyperhidrosis; R45.1 Restlessness and agitation | CPT/HCPCS: A0425; A0427; A0999 ==